=== PATIENT | male | born 1960 | race Caucasian/White ===

== ENCOUNTER 2023-11-02 05:26 | Emergency (ER) | payer OTHER ==
[~2023-11-02] VITALS: Ht 170.2 cm; Wt 75.0 kg
[~2023-11-02 05:26] MED LIST: STERAPRED DS10 MG PO
[2023-11-02 05:44] VITALS: BP 114/80
[2023-11-02] MEDS ORDERED: valACYclovir 500 MG TAB PO ONE (05:55)
[2023-11-02] MEDS ORDERED: GABAPENTIN 300 MG/CAP PO ONE (05:55)
[2023-11-02] MEDS ORDERED: TRAMADOL HCL50 MG PO (05:58)
[2023-11-02] MEDS ORDERED: VALTREX1 GM PO (05:58)
[2023-11-02] MEDS ORDERED: GABAPENTIN100 MG PO (05:58)
[2023-11-02 06:01] VITALS: BP 117/81
[2023-11-02 06:16] VITALS: BP 111/82
[2023-11-02 06:40] VITALS: BP 111/82
== END 2023-11-02 06:43 | disposition home or self-care (01) | DRG 596 ==
LOC: ED 05:26
DX: B02.9 Zoster without complications (principal)

== ENCOUNTER 2024-09-06 15:11 | Emergency (ER) | payer OTHER ==
[~2024-09-06] VITALS: Ht 170.2 cm; Wt 83.0 kg
[~2024-09-06 15:11] MED LIST changes: +GABAPENTIN100 MG PO; +TRAMADOL HCL50 MG PO; +VALTREX1 GM PO
[2024-09-06 16:26] VITALS: BP 122/84
[2024-09-06 16:30] VITALS: BP 115/82
[2024-09-06] MEDS ORDERED: PREDNISONE20 MG PO (16:42)
[2024-09-06] MEDS ORDERED: DICLOFENAC SODIUM2 % TD (16:42)
[2024-09-06 17:00] VITALS: BP 112/85
[2024-09-06 17:10] VITALS: BP 112/85
== END 2024-09-06 17:10 | disposition home or self-care (01) | DRG 563 ==
LOC: ED 15:11
DX: S63.91XA Sprain of unspecified part of right wrist and hand, initial encounter (principal); W19.XXXA Unspecified fall, initial encounter; M79.5 Residual foreign body in soft tissue
CPT/HCPCS: J1100